=== PATIENT | female | born 2000 | race Caucasian/White ===

== ENCOUNTER 2022-03-19 17:22 | Emergency (ER) | payer OTHER, SELFPAY ==
[2022-03-19 17:39] VITALS: BP 112/71; PULSE 91; RESP 18; TEMP 36.4; O2SAT 100
--- NOTE | 2022-03-19 17:49 | ED.FEMALEGU ---
HPI - Female Genitourinary General Chief complaint: Urogenital-Female Stated complaint: std testing Time Seen by Provider: 03/19/22 17:45 Source: patient Mode of arrival: ambulatory Limitations: no limitations History of Present Illness HPI Narrative: Asmita is a 21-year-old female patient presenting to the clinic today with complaints of possible exposure to chlamydia. She reports that the partner she was last with on March 02 possibly had chlamydia per another female. She denies any vaginal discharge, pain, urinary symptoms, abdominal pain, back pain, or fevers Related Data Allergies Allergy/AdvReac Type Severity Reaction Status Date / Time No Known Allergies Allergy Verified 03/19/22 17:41 Review of Systems Review of Systems: Pertinent positives per HPI. Patient denies any fever, chills, rash, headache, visual changes, dizziness, cough, runny nose, sore throat, shortness of breath, chest pain, palpitations, nausea, vomiting, diarrhea, constipation, abdominal pain, or any urinary issues. PMFSH Comments At the time of my signature, I reviewed and agree with the nursing past medical, surgical, social, and family history. There is no relevant family history pertinent to the patient complaint. Exam Narrative: General: Well-developed, well nourished, in no apparent distress. Head: Normocephalic, atraumatic. Cardio: Regular rate and rhythm, s1 and s2 normal, no murmur appreciated. Resp: Clear to auscultation bilaterally, no rhonchi, rales, wheezing or rubs. Abdomen: Soft, pliable, bowel sounds present in all quadrants, non-tender to palpation, no organomegly, no CVAT tenderness. : Deferred- patient is not actively having any symptoms Course Course Emergency Course: Portions of this record may have been created with voice recognition software. Level of Care: Express Care Visit Vital Signs Vital signs: Vital Signs Temperature 36.4 C 03/19/22 17:39 Pulse Rate 91 03/19/22 17:39 Respiratory Rate 18 03/19/22 17:39 Blood Pressure 112/71 03/19/22 17:39 Pulse Oximetry 100 03/19/22 17:39 Oxygen Delivery Room Air 03/19/22 17:39 Temperature 36.4 C 03/19/22 17:39 Pulse Rate 91 03/19/22 17:39 Respiratory Rate 18 03/19/22 17:39 Blood Pressure 112/71 03/19/22 17:39 Pulse Oximetry 100 03/19/22 17:39 Oxygen Delivery Room Air 03/19/22 17:39 Vital signs reviewed Discharge Plan Discharge Clinical Impression: Exposure to chlamydia High risk sexual behavior Qualifiers: High risk sexual behavior type: heterosexual Qualified Code(s): Z72.51 - High risk heterosexual behavior Patient Disposition: Home, Self-Care Condition: Stable Instructions: Antibiotic Form, Chlamydia (ED), Sexually Transmitted Diseases (ED), Safe Sex Practices (ED) Additional Instructions: Rocephin 500 mg IM given in the clinic today Take doxycycline as prescribed Dirty urine sample was obtained to test for chlamydia, gonorrhea, and Trichomonas We have tested/treated you for STIs in the clinic today. Avoid any sexual activity- includes oral, anal, or vaginal intercourse until you get results back and have completed any additional recommended treatment regimens. We will contact when testing is complete and if testing is positive we will make sure your treatment was appropriate for the type of STI. If symptoms worsen after treatment recommend reevaluation with your PCP Prescriptions: New doxycycline monohydrate 100 mg capsule 100 mg PO BID 7 Days Qty: 14 0RF Follow-up/Referrals: UNKNOWN,DOCTOR [Primary Care Provider] - Time of Disposition: 17:53 Quality NIHSS Nursing Documentation ED NIHSS nursing documentation: reviewed/agree
[2022-03-19] MEDS: cefTRIAXone 500 MG, LIDOCAINE HCL 1% LOCAL INJ 1 ML IM (17:58)
== END 2022-03-19 18:24 | disposition home or self-care (01) ==
PROVIDERS: Emergency Provider Nurse Practitioner Family
DX: Z72.51 High risk heterosexual behavior (principal); Z20.2 Contact with and (suspected) exposure to infections with a predominantly sexual mode of transmission
CPT/HCPCS: 87491; 87591; 87661; 96372; 99204; G0463; J0696